=== PATIENT | female | born 1975 | race American Indian/Alaskan Native ===

== ENCOUNTER 2019-06-13 05:01 | Emergency (ER) | payer MEDICAID ==
[~2019-06-13] VITALS: Ht 165.1 cm; Wt 72.7 kg
[2019-06-13 05:02] VITALS: BP 125/89
--- NOTE | 2019-06-13 05:10 | NUR ---
Patient to xray
[2019-06-13] MEDS ORDERED: ketorolac trometh inj. 60 MG/2 ML VIAL IM ONE (05:20)
[2019-06-13] MEDS ORDERED: IBUP-1984 PO (05:21)
== END 2019-06-13 05:32 | disposition home or self-care (01) ==
LOC: ER 05:02
DX: S46.091A Other injury of muscle(s) and tendon(s) of the rotator cuff of right shoulder, initial encounter (principal); Z88.5 Allergy status to narcotic agent; Z88.1 Allergy status to other antibiotic agents; Z79.899 Other long term (current) drug therapy; X50.1XXA Overexertion from prolonged static or awkward postures, initial encounter; Y93.89 Activity, other specified; Y92.89 Other specified places as the place of occurrence of the external cause; Y99.8 Other external cause status
CPT/HCPCS: 73030; 96372; 99283; J1885

== ENCOUNTER 2025-02-18 18:45 | Emergency (ER) | payer MEDICAID ==
[~2025-02-18] VITALS: Ht 175.3 cm; Wt 66.2 kg
[2025-02-18 18:53] VITALS: TEMP 97.6
[2025-02-18 19:33] LABS: BILIRUBIN,URINE NEGATIVE (Neg); CLARITY,URINE CLEAR (Clear); COLOR,URINE YELLOW (Yellow); GLUCOSE, URINE NEGATIVE (Neg); KETONES,URINE NEGATIVE (Neg); LEUKOCYTE ESTERASE ,URINE NEGATIVE (Neg); NITRITES, URINE NEGATIVE (Neg); OCCULT BLOOD,URINE NEGATIVE (Neg); PH,URINE 6.5 (4.8-8.0); PROTEIN,URINE NEGATIVE (Neg); UROBILINOGEN,URINE 0.2 E.U/dL (0.2-1.0)
[2025-02-18 19:34] LABS: UA COLLECTION TYPE CLN CATCH MIDSTREAM
[2025-02-18 19:36] LABS: URINE HCG NEGATIVE (NEG)
[2025-02-18 20:08] LABS: BASOPHILS # (AUTO) 0.1 X10'3 (0-0.2); BASOPHILS % (AUTO) 1.1 % (0-1); EOSINOPHILS # (AUTO) 0.1 X10'3 (0-0.9); EOSINOPHILS % (AUTO) 1.6 % (0-6); HEMATOCRIT 38.7 % (35.0-45.0); HEMOGLOBIN 12.8 g/dl (12.0-16.0); LYMPHOCYTES # (AUTO) 2.5 X10'3 (1.1-4.8); LYMPHOCYTES % (AUTO) 31.3 % (21-51); MEAN CORPUSCULAR HEMOGLOBIN 28.7 PG (27.0-31.0); MEAN CORPUSCULAR HGB CONC 33.1 g/dL (33.0-36.5); MEAN CORPUSCULAR VOLUME 86.6 FL (78-98); MEAN PLATELET VOLUME 7.8 FL (7.4-10.4); MONOCYTES # (AUTO) 0.5 X10'3 (0-0.9); MONOCYTES % (AUTO) 6.5 % (2-12); NEUTROPHILS # (AUTO) 4.7 X10'3 (1.8-7.7); NEUTROPHILS % (AUTO) 59.5 % (42-75); PLATELET COUNT 255 X10'3 (140-440); RED BLOOD COUNT 4.47 X10'6 (4.20-5.60); RED CELL DISTRIBUTION WIDTH 16.3 % (11.5-14.5); WHITE BLOOD COUNT 7.9 X10'3 (4.5-11.0)
[2025-02-18 20:35] LABS: ALANINE AMINOTRANSFERASE 24 U/L (12-78); ALBUMIN/GLOBULIN RATIO 1.1 (1.1-1.5); ALKALINE PHOSPHATASE 83 IU/L (46-116); ANION GAP 8 (8-16); ASPARTATE AMINO TRANSFERASE 14 U/L (10-37); BILIRUBIN,TOTAL 0.6 MG/DL (0.1-1.0); BLOOD UREA NITROGEN 11 MG/DL (7-18); BUN/CREATININE RATIO 12.5 (10.0-20.0); CALCIUM 8.8 MG/DL (8.5-10.1); CHLORIDE 104 MMOL/L (99-107); CREATININE 0.88 MG/DL (0.40-0.90); GLUCOSE 85 MG/DL (70-104); LIPASE 25 U/L (16-77); POTASSIUM 4.1 MMOL/L (3.5-5.1); SODIUM 141 MMOL/L (135-145); TOTAL CARBON DIOXIDE 29.2 MMOL/L (24-32); TOTAL PROTEIN 7.6 G/DL (6.4-8.2); eCRCL 82 ML/MIN; eGFR 69 ML/MIN
[2025-02-18 22:40] VITALS: BP 128/85; PULSE 60; RESP 16; O2SAT 100
--- NOTE | 2025-02-18 23:47 | Physician Documentation ---
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 She is status post cholecystectomy. No obvious trigger provocation. No particular palliating or aggravating factors. She does report that there is a bulge coming out of her abdomen when she is experiencing this cramping pain. Did attempt to treat by taking magnesium to elevate the cramp. Also did topical heating pad. She states that the pressure in the region is helping. No nausea or vomiting. Most recent bowel movement was here in the emergency department. Continues to pass flatus. Medication Reconciliation Allergies: Coded Allergies: codeine (Unverified Allergy, Intermediate, 02/18/25) erythromycin base (Unverified Allergy, Intermediate, 02/18/25) clindamycin (Verified Allergy, Unknown, 02/18/25) Past Medical History Past Medical History: No Pertinent History Past Surgical History: no surgical history Alcohol Use: None Drug Use: none Review of Systems ROS 10 point review of systems was performed and unless noted above in HPI is negative for acute process/complaint. Physical Exam Vital Signs: Temperature: 97.6, Source: Temporal, Heart Rate: 60, Respiratory Rate: 16, BP: 128/85, Pulse Oximetry: 100, Weight: 66.200 Oxygen Flow Rate: 0 Physical Exam GENERAL: Awake, alert, oriented, GCS 15, no apparent distress, non-toxic appearing, answers questions, follows commands appropriately. HEENT: Atraumatic, normocephalic, pupils equal, extraocular muscles intact, sclerae anicteric, mucus membranes moist, oropharynx is clear, no stridor. NECK: supple, full active range of motion, trachea midline, no thyromegaly, no lymphadenopathy, no JVD. CARDIOVASCULAR: regular rate/rhythm, no murmurs/gallops/rubs, Pulses are 2+ in all extremities and symmetric. Capillary refill less than 2 seconds. PULMONARY: Nonlabored, good air movement ,no respiratory distress, speaking in full sentences, clear to auscultation bilaterally, no wheezing, no ronchi, no rales, no accessory muscle use. GASTROINTESTINAL: Soft, non-tender, non-distended, normal active bowel sounds, no organomegaly, no pulsatile masses, no CVA tenderness. NEUROLOGIC: Lucid with normal mental status. Normal facial symmetry. Moves all extremities symmetrically and with purpose. No truncal ataxia. Speech is fluid without evidence of dysarthria or aphasia, no focal deficits appreciated. MUSCULOSKELETAL: There is full range of motion of all extremities. There is no joint pain or joint swelling or joint erythema. There is no muscle pain or tenderness or swelling. EXTREMITIES: warm, well-perfused, no cyanosis, no clubbing, no edema, no acute deformities. Skin: warm, dry, no rashes or lesions, no jaundice, no petechiae orpurpura. No ecchymosis. PSYCHIATRIC: Normal affect, normal insight, normal concentration. Focused exam: [] No guarding or rebound. I do not appreciate any hernia currently. Progress Results/Orders Results/Orders Completed Orders - BYRON MARTINEZ DO Urinalysis, Cult If Indicated (02/18/25 18:56) Hcg, Ur Ql (02/18/25 18:56) Cbc/Diff (02/18/25 18:56) BMP (02/18/25 18:56) Lipase (02/18/25 18:56) CMP (02/18/25 18:56) Vital Signs 02/18/25 02/18/25 02/18/25 18:53 22:38 22:40 Temp 97.6 Pulse 83 60 Resp 15 16 16 B/P (MAP) 122/86 128/85 (99) Pulse Ox 97 100 O2 Flow Rate 0 Laboratory Tests Test 02/18/25 19:09 02/18/25 19:27 Urine Specimen Description Cln catch midstream Urine Color Yellow Urine Clarity Clear Urine pH 6.5 Urine Specific [place] <=1.005 Urine Protein Negative Urine Glucose (UA) Negative Urine Ketones Negative Urine Occult Blood Negative Urine Nitrite Negative Urine Bilirubin Negative Urine Urobilinogen 0.2 Urine Leukocyte Esterase Negative Urine Culture Indicated Not ind Volume Urine Centrifuged 10 ml Urine HCG, Qualitative Negative Urine Comment White Blood Count 7.9 Red Blood Count 4.47 Hemoglobin 12.8 Hematocrit 38.7 Mean Corpuscular Volume 86.6 Mean Corpuscular Hemoglobin 28.7 Mean Corpuscular Hemoglobin Concent 33.1 Red Cell Distribution Width 16.3 H Platelet Count 255 Mean Platelet Volume 7.8 Neutrophils (%) (Auto) 59.5 Lymphocytes (%) (Auto) 31.3 Monocytes (%) (Auto) 6.5 Eosinophils (%) (Auto) 1.6 Basophils (%) (Auto) 1.1 H Neutrophils # (Auto) 4.7 Lymphocytes # (Auto) 2.5 Monocytes # (Auto) 0.5 Eosinophils # (Auto) 0.1 Basophils # (Auto) 0.1 CBC Comment Sodium Level 141 Potassium Level 4.1 Chloride Level 104 Carbon Dioxide Level 29.2 Anion Gap 8 Blood Urea Nitrogen 11 Creatinine 0.88 Estimated GFR/1.73 m2 69 BUN/Creatinine Ratio 12.5 Glucose Level 85 Calcium Level 8.8 Total Bilirubin 0.6 Aspartate Amino Transf (AST/SGOT) 14 Alanine Aminotransferase (ALT/SGPT) 24 Alkaline Phosphatase 83 Total Protein 7.6 Albumin 4.0 Globulin 3.6 Albumin/Globulin Ratio 1.1 Lipase 25 Chemistry Comments Medical Decision Making Findings Facility Status: ED Holds, [facility] process The plan was discussed with the patient, who demonstrates clear understanding of the plan and is in agreement with the plan unless otherwise noted in the chart. All questions have been answered, all concerns were addressed unless otherwise documented. I was available throughout their ED stay for frequent reassessment and questions. Differential Diagnoses (considered and possible or likely): [Differential diagnosis considered includes acute appendicitis, acute cholecystitis, pancreatitis, gastritis, PUD, diverticulitis, mesenteric ischemia, abdominal aortic aneurysm, bowel obstruction, enteritis, colitis, fecal impaction, volvulus, IBS, inflammatory bowel disease, specific food intolerance, peritonitis, perforated viscous, malignancy, UTI, abscess, and abdominal pain NOS. Pelvic source of pain was also considered including endometritis, dysmenorrhea, ovarian cyst, ovarian torsion, PID, TOA, cervicitis, vaginitis, or uterine fibroid. History, physical exam, and workup exclude many of the more serious causes listed above. ] ??Differential Diagnoses (considered and unlikely, not requiring evaluation currently): [Aortic/great vessels dissection was considered but it is unlikely based on absence of ripping, tearing, migratory chest pain, absence of syncope or focal neurologic deficits, physical examination indicating equal and symmetric pulses.] MDM Data Please see HPI for the following: Independent Historians and external Records Review. Historian: [Patient] Independent Historians: ?[Record review] Medication Management: [Reviewed medication list] Social History and determinants: [Reviewed] Please see the body of the note for the following: Any independent interpretations of ECG, imaging studies. All vitals signs/haemodynamics, ordered tests were independently reviewed and interpreted by myself. Nursing triage complaint and vitals reviewed, additional nursing notes were reviewed as available and I agree unless otherwise noted or documented in contradiction in the chart Vital Signs: Independently reviewed Labs: Independently interpreted Imaging: Independently interpreted Old Medical Records: Independently reviewed, see HPI for relevant summary and information Pulse Oximetry: [98%] interpreted as [normal on room air] by me Additionally notably showing: [Hemodynamically stable. Unremarkable laboratory workup with normal CBC, normal CMP. UA nondiagnostic for UTI.] Tests considered but not ordered include: [Imaging has been considerably in offered to the patient but she declines.] Social Determinants of Health Impact: Patient was evaluated in [facility] [place] to healthcare due to below par ratio of patient to medical providers. [] Comorbid Conditions Impacting Present Evaluation and Care/Treatment: [Multiple abdominal surgeries in the past] Management Discussions with other Healthcare Providers: [None] Treatment and Disposition Medication Management (Given or considered): []. See EMR for details Consideration for Hospitalization/Escalation/Deescalation of Care: Admission for observation has been considered, [however the patient is able to tolerate p.o., their symptoms are controlled, they are able to rely on oral medications, and their chief complaint/diagnosis can be managed on outpatient basis.] ?ED Course:?[Clinically no evidence of incarcerated or strangulated hernia, no evidence of bowel obstruction.] ?Shared decision making:?[Patient is hemodynamically stable for discharge home with follow with their primary care provider. [ Patient was advised to follow-up with the GI specialist.] Specific and cautious return precautions provided and discussed with full understanding. Any incidental findings were also discussed and follow up recommendations given. [] All questions answered. Patient/family were able to verbalize back return precautions. Patient/family agree to plan. Copies of imaging and laboratory studies were provided.] Code status:?FULL Please see the full Electronic Medical Record for full details of nursing documentation, medications list, other records of complete past medical history and conditions, vital signs, laboratory studies, and any radiologic study interpretations by radiologists. Portions of this note were completed using [employer] dictation software and as a result there may exist minor errors in spe lling. I have reviewed elements of past family and social history and agree as included in note. Departure Disposition: HOME / SELF CARE / HOMELESS Impression: Primary Impression: Abdominal pain, crampy Condition: Improved Discharge Instructions: Abdominal Pain (Nonspecific) Referrals: NO PRIMARY CARE PROVIDER (PCP) Education Educated: Patient Educated regarding: diagnosis, treatment, prognosis, need for follow up Signature Scribe Signature: No scribe Attestation: This note accurately reflects clinical decisions, work performed by myself, Byron Martinez, BYRON PATEL DO Feb 18, 2025 23:47
== END 2025-02-19 | disposition home or self-care (01) ==
LOC: ER 18:45
DX: R10.11 Right upper quadrant pain (principal); Z88.5 Allergy status to narcotic agent; Z88.1 Allergy status to other antibiotic agents; Z90.49 Acquired absence of other specified parts of digestive tract
CPT/HCPCS: 36415; 80053; 81003; 81025; 83690; 85025; 99283

== ENCOUNTER 2025-07-31 07:07 | Day surgery (SDC) | payer MEDICAID ==
[~2025-07-31] VITALS: Ht 160 cm; Wt 67.0 kg
[~2025-07-31 07:07] MED LIST: CHOL100046 PO; DIATOMACEOUS EARTH; MAGN400T56 PO; OREGANO OIL PO; ringers solution, lacted 1,000 ML IV SCH
[2025-07-31 07:31] VITALS: BP 104/61; PULSE 57; RESP 15; RESP 16; TEMP 97.2; O2SAT 99
[2025-07-31] MEDS ORDERED: LIDOcaine 2% Viscous 15ml cup ONE (08:00)
[2025-07-31] MEDS ORDERED: fentaNYL/PF 50MCG/1 ML 2ML syringe ONE ×2 (09:02→09:35)
[2025-07-31] MEDS ORDERED: midazolam 1 mg/ML 2ml injection ONE (09:03)
[2025-07-31] MEDS ORDERED: propofol inj 20 ML IV ONE (09:05)
[2025-07-31] MEDS ORDERED: ePHEDrine 50MG/ML INJ. ONE (09:17)
[2025-07-31] MEDS ORDERED: LIDOcaine 1%/PF 5ML 10 MG/ML VIAL ONE (09:31)
[2025-07-31] MEDS ORDERED: LIDOcaine 2% (20mg/ml) 5ml vial ONE (09:31)
[2025-07-31 09:59] VITALS: BP 101/55; PULSE 86; RESP 16; O2SAT 100
[2025-07-31 10:00] VITALS: BP 101/55; PULSE 75; RESP 11; O2SAT 100
[2025-07-31 10:10] VITALS: BP 100/59; PULSE 69; RESP 11; O2SAT 100
[2025-07-31 10:20] VITALS: BP 107/59; PULSE 69; RESP 14; O2SAT 100
[2025-07-31 10:30] VITALS: BP 103/55; PULSE 65; RESP 12; O2SAT 99
== END 2025-07-31 10:49 | disposition home or self-care (01) ==
LOC: PAS 07:07
PROVIDERS: ATTEND Internal Medicine Gastroenterology
DX: Z12.11 Encounter for screening for malignant neoplasm of colon (principal); R10.33 Periumbilical pain; K25.9 Gastric ulcer, unspecified as acute or chronic, without hemorrhage or perforation; K31.89 Other diseases of stomach and duodenum; K30 Functional dyspepsia; K64.8 Other hemorrhoids; F41.9 Anxiety disorder, unspecified; Z90.49 Acquired absence of other specified parts of digestive tract; Z98.890 Other specified postprocedural states; Z87.891 Personal history of nicotine dependence; Z88.1 Allergy status to other antibiotic agents; Z79.899 Other long term (current) drug therapy
CPT/HCPCS: 43239; 45378; 82948; J2003; J2250; J2704; J3010; J3490; J7120; Z7512; 43235; A4615